=== PATIENT | female | born 1990 | race Asian ===

== ENCOUNTER 2025-06-24 04:50 | Emergency (ER) | payer OTHER ==
[~2025-06-24] VITALS: Ht 144.8 cm; Wt 45.0 kg
[2025-06-24 04:51] VITALS: BP 127/86; PULSE 90; RESP 16; TEMP 97.7; O2SAT 100
[2025-06-24] MEDS: FLUORESCEIN SODIUM 1 MG STRIP OD ONE (05:40)
[2025-06-24] MEDS: PROPARACAINE HCL 0.5% 15 ML OPHTHALMIC SOLUTION OD ONE (05:40)
== END 2025-06-24 06:00 | disposition home or self-care (01) ==
LOC: EDBD 04:52 → EMS 04:52
DX: H57.89 Other specified disorders of eye and adnexa (principal); Z77.098 Contact with and (suspected) exposure to other hazardous, chiefly nonmedicinal, chemicals; X58.XXXA Exposure to other specified factors, initial encounter; Y93.89 Activity, other specified; Y92.89 Other specified places as the place of occurrence of the external cause; Y99.0 Civilian activity done for income or pay
CPT/HCPCS: 99283